=== PATIENT | male | born 1945 | race Caucasian/White ===

== ENCOUNTER 2016-12-01 17:36 | Inpatient (IN) | payer MEDICARE ==
[2016-12-01 17:49] LABS: Glucose,Whole Blood 100 mg/dL (75-99)
[2016-12-01] MEDS ORDERED: SODIUM CHLORIDE 0.9% 1,000 ML IV STA (17:52)
[2016-12-01 18:13] LABS: Basophils # (A) 0.1 k/uL (0-0.2); Basophils % (A) 1 %; CH 33.4; CHCM 34.5; Eosinophils # (A) 0.2 k/uL (0-0.7); Eosinophils % (A) 2 %; HCT 43.7 % (39.0-53.0); HDW 2.75; HGB 14.6 gm/dL (13.0-17.5); Luc # (Auto) 0.15; Luc % (Auto) 2; Lymphocytes # (A) 2.6 k/uL (1.0-4.8); Lymphocytes % (A) 35 %; MCH 32.6 pg (25.0-35.0); MCHC 33.5 g/dL (31.0-37.0); MCV 97.2 fL (80.0-100.0); Mean Platelet Volume 6.9; Monocytes # (A) 0.5 k/uL (0-1.0); Monocytes % (A) 6 %; Neutrophils % (A) 53 %; RBC 4.49 m/uL (4.30-5.90); WBC 7.5 k/uL (3.8-10.6); WBC (Perox) 7.43
[2016-12-01 18:25] LABS: INR 1.1 (<1.1); Partial Thromboplastin Time 23.2 sec (22.0-30.0); Prothrombin Time 10.6 sec (9.0-12.0)
[2016-12-01 18:26] LABS: Creatine Kinase 48 U/L (55-170)
[2016-12-01 18:39] LABS: Creatine Kinase MB 0.8 ng/mL (0.0-2.4); Troponin I <0.012 ng/mL (0.000-0.034)
[2016-12-01 18:40] LABS: ALT 33 U/L (21-72); AST 20 U/L (17-59); Alkaline Phosphatase 88 U/L (38-126); Anion Gap 13 mmol/L; Blood Urea Nitrogen 11 mg/dL (9-20); Calcium 9.8 mg/dL (8.4-10.2); Carbon Dioxide 23 mmol/L (22-30); Chloride 107 mmol/L (98-107); Glucose 108 mg/dL (74-99); Non-African American GFR(MDRD) >60 (>60 ml/min/1.73 sqM); Potassium 4.1 mmol/L (3.5-5.1); Sodium 143 mmol/L (137-145); Total Bilirubin 0.4 mg/dL (0.2-1.3); Total Protein 6.9 g/dL (6.3-8.2)
--- NOTE | 2016-12-01 18:44 | CT ---
EXAMINATION TYPE: CT brain wo con DATE OF EXAM: 12/01/2016 6:36 PM COMPARISON: 10/20/2016 HISTORY: Left sided numbness CT DLP: 1036 mGycm Automated exposure control for dose reduction was used. FINDINGS: There is mild cerebral cortical atrophy. There is no mass effect nor midline shift. There is no sign of intracranial hemorrhage. There is a 3 cm area of cortical hypodensity in the left posterior fronta l lobe consistent with old cortical infarct. Calvarium is intact. IMPRESSION: Mild atrophy. Old left frontal lobe small cortical infarct. No change.
--- NOTE | 2016-12-01 18:54 | XR ---
EXAMINATION TYPE: XR chest 2V DATE OF EXAM: 12/01/2016 6:48 PM COMPARISON: 10/20/2016 HISTORY: Altered mental status TECHNIQUE: Frontal and lateral views of the chest are obtained. FINDINGS: There is no heart failure nor confluent pneumonic infiltrate. There are sternal wires. Tho racic aorta is atheromatous. Heart size is normal. There is no pleural effusion. Bony thorax is intac t. IMPRESSION: No active cardiopulmonary disease. No change.
[2016-12-01] MEDS ORDERED: ENALAPRILAT 1.25 MG/ML 1 ML VIAL IVP STA (19:12)
--- NOTE | 2016-12-01 19:23 | ED ---
Neuro HPI - General Chief Complaint: Neuro Symptoms/Deficit Stated Complaint: left side numbness Time Seen by Provider: 12/01/16 17:43 Source: patient Mode of arrival: wheelchair Limitations: no limitations - History of Present Illness Is the patient presenting with stroke symptoms?: Yes -: unknown (He went to bed last night, that time he had no weakness, he woke up in the morning this when he felt his left leg was weak) Initial Comments: He woke up around 8 AM today and that he felt that his left leg was weak then numb he fell when he was getting out of his bed then he noticed his leg was getting any somewhat better then he fell again in the bedroom and this was around 5 PM when he talked to some of his friends and they recommend that he comes to the ER he had a stroke not too long ago that affected his right side now he had gotten better quite a bit he was able to ambulate freely but this left leg weakness is new since 8 AM he doesn't know exactly when he noticed it when he when it started but he noticed at 8 AM when he woke up it could've been even prior to the. He denies any headaches no blurred vision no slurred speech no neck pain no chest pain or shortness of breath no abdominal pain no frequency urgency dysuria - Related Data Home Medications: Home Medications Medication Instructions Recorded Confirmed Propylene Glycol/Peg 400/Pf 1 drop BOTH EYES DAILY PRN 10/20/16 12/01/16 [Systane 0.3-0.4% Eye Drops] valACYclovir [Valtrex] 1,000 mg PO BID 10/20/16 12/01/16 Lisinopril [Zestril] 2.5 mg PO DAILY 12/01/16 12/01/16 Previous Rx's Medication Instructions Recorded Artificial Tears-Hypromellose 1 drops BOTH EYES DAILY PRN #0 10/21/16 [Artificial Tear Drops] bottle Atorvastatin [Lipitor] 40 mg PO DAILY #30 tab 10/21/16 Clopidogrel [Plavix] 75 mg PO DAILY #30 tab 10/21/16 Metoprolol Tartrate [Lopressor] 25 mg PO BID #60 tab 10/21/16 Allergies/Adverse Reactions: Allergies Allergy/AdvReac Type Severity Reaction Status Date / Time bismuth subsalicylate Allergy Vomiting Verified 12/01/16 17:56 [From Pepto-Bismol] shellfish derived [Shellfish] Allergy Anaphylaxis Verified 12/01/16 17:56 cephalexin monohydrate AdvReac Rapid Verified 12/01/16 17:56 [From Keflex] Heart Rate Review of Systems ROS Statement: Those systems with pertinent positive or pertinent negative responses have been documented in the HPI. ROS Other: All systems not noted in ROS Statement are negative. General Exam - General Exam Comments Initial Comments: General: The patient is awake and alert, in no distress, and does not appear acutely ill. He says is 15 Skin: Skin is warm and dry and no rashes or lesions are noted. Eye: Pupils are equal, round and reactive to light, extra-ocular movements are intact; there is normal conjunctiva bilaterally. Ears, nose, mouth and throat: There are moist mucous membranes and no oral lesions. Neck: The neck is supple, there is no tenderness on the trachea is midline no subcu emphysema noticed Cardiovascular: There is a regular rate and rhythm. No murmur, rub or gallop is appreciated. Respiratory: To auscultation bilateral, no wheezing no rhonchi no distress respiratory pozo noticed Gastrointestinal: Soft, non-distended, non-tender abdomen without masses or organomegaly noted. There is no rebound or guarding present. Bowel sounds are unremarkable. Back: There is no tenderness to palpation in the midline. There is no obvious deformity. Musculoskeletal: Normal ROM, no tenderness, There is no pedal edema. There is no calf tenderness or swelling. No cords were appreciated. Neurological: CN II-XII intact, Cranial nerves III through XII are intact. At the time of exam his left leg is definitely weaker than his right leg he was able to lift his leg few inches off the bed when he was not able to hold him for more than a few seconds no weakness noticed in the upper extremity no weakness noticed on the right lower extremity Psychiatric: Cooperative, appropriate mood & affect, normal judgment. Limitations: no limitations Stroke MDM - Lab Data Result diagrams: 12/01/16 18:00 12/01/16 18:00 Lab Results 12/01/16 12/01/16 12/01/16 Range/Units 17:44 18:00 18:00 WBC 7.5 (3.8-10.6) k/uL RBC 4.49 (4.30-5.90) m/uL Hgb 14.6 (13.0-17.5) gm/dL Hct 43.7 (39.0-53.0) % MCV 97.2 (80.0-100.0) fL MCH 32.6 (25.0-35.0) pg MCHC 33.5 (31.0-37.0) g/dL RDW 14.0 (11.5-15.5) % Plt Count 233 (150-450) k/uL Neutrophils % 53 % Lymphocytes % 35 % Monocytes % 6 % Eosinophils % 2 % Basophils % 1 % Neutrophils # 4.0 (1.3-7.7) k/uL Lymphocytes # 2.6 (1.0-4.8) k/uL Monocytes # 0.5 (0-1.0) k/uL Eosinophils # 0.2 (0-0.7) k/uL Basophils # 0.1 (0-0.2) k/uL PT (9.0-12.0) sec INR (<1.1) APTT (22.0-30.0) sec D-Dimer (<0.60) mg/L FEU Sodium (137-145) mmol/L Potassium (3.5-5.1) mmol/L Chloride (98-107) mmol/L Carbon Dioxide (22-30) mmol/L Anion Gap mmol/L BUN (9-20) mg/dL Creatinine (0.66-1.25) mg/dL Est GFR (MDRD) Af Amer (>60 ml/min/1.73 sqM) Est GFR (MDRD) Non-Af (>60 ml/min/1.73 sqM) Glucose (74-99) mg/dL POC Glucose (mg/dL) 100 H (75-99) mg/dL POC Glu Well Head Pumper ID Flor[place]ma Back Calcium (8.4-10.2) mg/dL Total Bilirubin (0.2-1.3) mg/dL AST (17-59) U/L ALT (21-72) U/L Alkaline Phosphatase (38-126) U/L Total Creatine Kinase 48 L (55-170) U/L CK-MB (CK-2) 0.8 (0.0-2.4) ng/mL CK-MB (CK-2) Rel Index 1.7 Troponin I <0.012 (0.000-0.034) ng/mL Total Protein (6.3-8.2) g/dL Albumin (3.5-5.0) g/dL 12/01/16 12/01/16 12/01/16 Range/Units 18:00 18:00 18:00 WBC (3.8-10.6) k/uL RBC (4.30-5.90) m/uL Hgb (13.0-17.5) gm/dL Hct (39.0-53.0) % MCV (80.0-100.0) fL MCH (25.0-35.0) pg MCHC (31.0-37.0) g/dL RDW (11.5-15.5) % Plt Count (150-450) k/uL Neutrophils % % Lymphocytes % % Monocytes % % Eosinophils % % Basophils % % Neutrophils # (1.3-7.7) k/uL Lymphocytes # (1.0-4.8) k/uL Monocytes # (0-1.0) k/uL Eosinophils # (0-0.7) k/uL Basophils # (0-0.2) k/uL PT 10.6 (9.0-12.0) sec INR 1.1 (<1.1) APTT 23.2 (22.0-30.0) sec D-Dimer 1.70 H (<0.60) mg/L FEU Sodium 143 (137-145) mmol/L Potassium 4.1 (3.5-5.1) mmol/L Chloride 107 (98-107) mmol/L Carbon Dioxide 23 (22-30) mmol/L Anion Gap 13 mmol/L BUN 11 (9-20) mg/dL Creatinine 1.00 (0.66-1.25) mg/dL Est GFR (MDRD) Af Amer >60 (>60 ml/min/1.73 sqM) Est GFR (MDRD) Non-Af >60 (>60 ml/min/1.73 sqM) Glucose 108 H (74-99) mg/dL POC Glucose (mg/dL) (75-99) mg/dL POC Glu Well Head Pumper ID Calcium 9.8 (8.4-10.2) mg/dL Total Bilirubin 0.4 (0.2-1.3) mg/dL AST 20 (17-59) U/L ALT 33 (21-72) U/L Alkaline Phosphatase 88 (38-126) U/L Total Creatine Kinase (55-170) U/L CK-MB (CK-2) (0.0-2.4) ng/mL CK-MB (CK-2) Rel Index Troponin I (0.000-0.034) ng/mL Total Protein 6.9 (6.3-8.2) g/dL Albumin 4.1 (3.5-5.0) g/dL Past Medical History Past Medical History: Coronary Artery Disease (CAD), Myocardial Infarction ([place]) Additional Past Medical History / Comment(s): ABD HERNIA, 7- CELLULITS ABD/ BACK PT STATED AHS HAD SAME RASH AND ASSOCIATED FEVER 6 TIMES SINCE TX WITH STEROIDS AND ABX BUT IT COMES BACK, PVD. HX OF TRIPPING OVER A GARDEN TOOL IN [place] 2 WEEKS AGO HAS PAIN RT RIB AREAS WHEN TAKING DEEP BREATH AND SAID HIT HIS NOSE SO HARD HE THINKS HE MAY HAVE BROKEN IT-HAD BLEEDING OFF AND ON X2 DAYS. Last Myocardial Infarction Date:: 1999 History of Any Multi-Drug Resistant Organisms: None Reported Past Surgical History: Coronary Bypass/CABG, Tonsillectomy Additional Past Surgical History / Comment(s): TRIPLE CABG , CHILDHOOD ACCIDENT WHERE A SHATTERED PEICE OF FENCE POST WENT THROUGH HIM SIDE TO SIDE. HAD PART OF HIS BOWEL REMOVED. Past Anesthesia/Blood Transfusion Reactions: Motion Sickness Past Psychological History: No Psychological Hx Reported Additional Psychological History / Comment(s): PT LIVES AT HOME WITH HIS . IS VERY INDEPENDANT. 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 Does have exposure to material every spring from where small animals such as mice had made nests in the [employer]. However his illnesses started in December before he was cleaning out these machines. He has no experience. No international travel. There is a pet cat in the home it's been there for about 5 years. No other animal exposures. Was a tobacco smoker stopping 15 years ago. No specific history of alcohol or recreational drug use. Smoking Status: Former smoker Past Alcohol Use History: Rare Additional Past Alcohol Use History / Comment(s): STARTED SMOKING AT AGE 14- SMOKED 2 ENJOYS AND RARE TO OCC BEER,DENIES ANY PAST OR CURRENT DRUG USE. Past Drug Use History: None Reported - Past Family History Father Additional Family Medical History / Comment(s): FROM A BRAIN ANEURYSM Mother Family Medical History: Myocardial Infarction ([place]) Course Vital Signs 12/01/16 12/01/16 12/01/16 17:47 18:00 18:53 Temperature 99.0 F 98.3 F Pulse Rate 70 74 68 Respiratory 20 16 16 Rate Blood Pressure 183/87 172/81 180/100 O2 Sat by Pulse 99 96 96 Oximetry KG is normal sinus rhythm ventricular rate 71 NJ interval is 142 QRS duration is 96 QT/QTc is 394/428 review of this EKG does not show any ST elevation or ST depression Considering the onset of symptoms is not clear 8 AM in the morning when patient I noticed that, it could've started even earlier than that patient showed showed up in the ER about 9 hours after he noticed symptoms that's why there is no question of any thrombolytics at this point and his symptoms have gotten somewhat better Disposition Clinical Impression: CVA (cerebral vascular accident) Disposition: ADMITTED IP TO THIS HOSP Condition: Good
[2016-12-01 19:26] LABS: Amorphous Sediment,Urine Rare /hpf; Appearance,Urine Clear (Clear); Bilirubin,Urine Negative (Negative); Glucose,Urine (UA) Negative (Negative); Ketones,Urine Negative (Negative); Leukocyte Esterase,Urine Moderate (Negative); Mucus,Urine Rare /hpf; Nitrite,Urine Negative (Negative); Particle Count 982; Protein,Urine Negative (Negative); RBC,Urine 2 /hpf (0-5); UA Billing (MACRO vs. MICRO) MICRO; Urobilinogen,Urine <2.0 mg/dL (<2.0); WBC,Urine 7 /hpf (0-5)
[2016-12-01] MEDS ORDERED: ONDANSETRON 4 MG/2 ML VIAL IVP PRN (19:28)
[2016-12-01] MEDS ORDERED: ACETAMINOPHEN TAB 325 MG TAB PO PRN (19:28)
[2016-12-01] MEDS ORDERED: NALOXONE 0.4 MG/ML 1 ML VIAL IV PRN (19:28)
[2016-12-01] MEDS ORDERED: ARTIFICIAL TEARS-HYPROMELLOSE DROPS 15 ML BTL BOTH EYES PRN (19:33)
[2016-12-01] MEDS ORDERED: PROPYLENE GLYCOL BOTH EYES PRN (19:33)
[2016-12-01] MEDS ORDERED: PEG BOTH EYES PRN (19:33)
--- NOTE | 2016-12-01 20:51 | US ---
EXAMINATION TYPE: US venous doppler duplex LE LT DATE OF EXAM: 12/01/2016 8:34 PM COMPARISON: NONE CLINICAL HISTORY: US. Pain left lower leg SIDE PERFORMED: Left VESSELS IMAGED: External Iliac Vein (EIV) Common Femoral Vein Deep Femoral Vein Greater Saphenous Vein * Femoral Vein Popliteal Vein Small Saphenous Vein * Proximal Calf Veins (* superficial vessels) Left Leg: No evidence of DVT. TECHNOLOGIST IMPRESSION: No evidence of DVT left leg. Incidental finding: minimal flow noted femoral artery prox/mid IMPRESSION: No evidence of deep venous thrombosis in the left leg. There is noted significant occlus matt disease involving the femoral artery.
[2016-12-01] MEDS ORDERED: valACYclovir 500 MG TAB PO SCH (21:00)
[2016-12-01 21:40] VITALS: BMI 29.7
[2016-12-01] MEDS: valACYclovir HCL 1,000 MG TABLET PO SCH (21:47)
[2016-12-01] MEDS: METOPROLOL TARTRATE 25 MG TAB PO SCH (22:06)
[2016-12-02] MEDS: CLOPIDOGREL 75 MG TAB PO SCH (08:51)
[2016-12-02] MEDS: METOPROLOL TARTRATE 25 MG TAB PO SCH ×2 (08:51→20:41)
[2016-12-02] MEDS: valACYclovir HCL 1,000 MG TABLET PO SCH ×2 (08:51→20:41)
[2016-12-02] MEDS ORDERED: ATORVASTATIN 40 MG TAB PO SCH (09:00)
[2016-12-02] MEDS ORDERED: LISINOPRIL 2.5 MG TAB PO SCH (09:00)
[2016-12-02] MEDS: ENOXAPARIN 40 MG/0.4 ML SYRINGE SQ SCH (17:50)
[2016-12-02] MEDS: ASPIRIN 81 MG CHEW PO SCH (17:50)
[2016-12-02] MEDS: LISINOPRIL-HCTZ 10-12.5 MG 1 EACH TAB PO SCH (20:42)
--- NOTE | 2016-12-02 20:52 | HP ---
DATE OF ADMISSION: 12/01/2016 PRESENTING COMPLAINT: Left leg weakness. HISTORY OF PRESENTING COMPLAINT: This is a pleasant 71-year-old patient who was seen in the hospital in the early part of October. He was then seen by Dr. Samuel from Neurology. Patient at that time had an acute stroke in the left MCA territory with right-sided weakness. Patient was found to have a chronically occluded left internal carotid artery and also was found to have multifocal significant narrowing and occlusion of the left vertebral artery. Patient's other chronic medical conditions include coronary artery disease, hypertension. Patient's last 2-D echo showed an EF of 35% to 40%. Patient presented with some left leg weakness. No infection of the arm. Speech was not involved. There was no change in vision, no change in swallowing. Patient had to drag his feet. Over the course of time, symptoms are greatly improved. REVIEW OF SYSTEMS: CONSTITUTIONAL: None. HEENT: None. RESPIRATORY: None. CARDIOVASCULAR: None. GASTROINTESTINAL: None. GENITOURINARY: None. MUSCULOSKELETAL: None. DERMATOLOGICAL: None. HEMATOLOGICAL: None. LYMPHATICS: None. PSYCHIATRY: None. NEUROLOGICAL: None. PAST MEDICAL HISTORY: 1. Stroke in the left middle cerebral artery with complete occlusion of the left internal carotid artery. 2. 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 3. Coronary artery disease with prior history of CABG. 4. Essential hypertension. 5. Dysarthria previously. 6. Abdominal hernia. PAST SURGICAL HISTORY: 1. Coronary artery bypass. 2. Tonsillectomy. 3. The patient had a childhood accident when a piece of fence when through him from one side to the other; had part of his bowel removed. SOCIAL HISTORY: . 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 He did smoke in the past. FAMILY HISTORY: Myocardial infarction. HOME MEDICATIONS: 1. Valtrex 1000 mg p.o. daily. 2. Systane 1 drop to both eyes daily p.r.n. 3. Lopressor 25 mg p.o. b.i.d. 4. Zestril 2.5 p.o. daily. 5. Plavix 75 mg p.o. daily. 6. Lipitor 40 mg p.o. daily. 7. Artificial Tears 1 drop to both eyes daily p.r.n. ALLERGIES: SHELLFISH. Looks like side effects to PEPTO-BISMOL and KEFLEX. PHYSICAL EXAMINATION: VITAL SIGNS ON PRESENTATION: Temperature 99, pulse 70, respiration 20, blood pressure 183/87, pulse ox 99% on room air. GENERAL APPEARANCE: Average build. Lying in bed, not in distress. EYES: Pupils equal. Conjunctivae normal. HEENT: Oral cavity normal. NECK: JVD not raised. Mass not palpable. RESPIRATORY: Effort normal. Lungs are clear. CARDIOVASCULAR: First and second sounds normal. No edema. ABDOMEN: Soft, nontender. Liver and spleen not palpable. LYMPHATIC: No lymph node palpable in neck or axillae. PSYCHIATRY: Alert and oriented x3. Mood and affect normal. NEUROLOGICAL: Pupils equal. Cranial nerves grossly intact. Power and sensation grossly intact. INVESTIGATIONS: White count 7.5, hemoglobin 14.6, potassium 4.1. UA positive for leukocyte esterase, WBC. CT scan of the brain shows old left frontal lobe cortical infarct. ASSESSMENT: 1. Acute stroke in the right middle cerebral artery with weakness of the left leg; symptoms have nearly resolved in a right-handed patient. 2. Complete occlusion of the left internal carotid artery, chronic. 3. 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 4. Coronary artery disease with prior history of bypass. 5. Essential hypertension, uncontrolled on presentation. 6. Ischemic cardiomyopathy; ejection fraction 35% to 40% per recent echocardiogram. PLAN: Patient is already taking Plavix at home. Will add a small dose of aspirin 81 mg a day. Since the blood pressure is running high, blood pressure medication will be adjusted. Patient already had extensive workup done recently; I am not sure if further can be added. We will get a neurology opinion in the meantime. Patient left leg is nearly completely resolved. Care was discussed in detail with the patient.
[2016-12-02] MEDS ORDERED: ATORVASTATIN 80 MG TAB PO SCH (21:00)
--- NOTE | 2016-12-02 22:43 | CONS ---
DATE OF CONSULTATION: 12/02/2016 CHIEF COMPLAINT: Transient ischemic attack. HISTORY OF PRESENT ILLNESS: The patient is a pleasant 71-year-old male who is being evaluated by the neurology service per the request of Dr. Rodriguez for a transient ischemic attack. The patient was brought into [facility] emergency room yesterday after the patient noticed numbness and weakness involving his left lower extremity. The patient does have history of strokes and transient ischemic attack in the past. He states that approximately one month ago, he had similar symptoms involving his right lower extremity, which lasted a couple of days and did resolve. He was seen at [facility] for that episode, and did have a full neurological exam work-up. At that time, his carotid Doppler showed evidence of left internal carotid artery occlusion and this was also verified by a CT angiogram of the neck, which was done on 10/30/2016. The patient on that admission was switched from aspirin to Plavix but he states that he was still just taking aspirin daily at home and was not taking Plavix. On this admission, his left lower extremity weakness and numbness came on suddenly and lasted several hours. By the time he was admitted, his symptoms had resolved completely. At the time of my evaluation, he is lying in his bed and appears to be in no acute distress. He denies any neurological symptoms at this time. I did review his CT scan of the brain, which showed old ischemic stroke involving the left frontal lobe along with generalized atrophy. His CBC, comprehensive metabolic profile, and cardiac enzymes were normal. His urinalysis did show 7 WBCs with moderate leukocyte esterase. PAST MEDICAL HISTORY: Stroke, transient ischemic attack, hypertension, coronary artery disease, history of coronary artery bypass graft, history of left internal carotid artery occlusion, history of myocardial infarction, history of tonsillectomy. SOCIAL HISTORY: The patient is a former smoker. He rarely drinks alcohol. He denies any drug use. The patient lives at home with his . FAMILY HISTORY: Positive for intracranial aneurysm and heart disease. HOME MEDICATIONS: Reviewed in the chart. ALLERGIES: SHELLFISH, KEFLEX, PEPTO-BISMOL. REVIEW OF SYSTEMS: CONSTITUTIONAL: Negative. ( ) ENT: Negative. CARDIOVASCULAR: Negative. RESPIRATORY: Negative. NEUROLOGICAL: As mentioned above. GASTROINTESTINAL: Negative. GENITOURINARY: Negative. PSYCHIATRIC: Negative. MUSCULOSKELETAL: Negative. Dermatological: Negative. ENDOCRINE: Negative. PHYSICAL EXAM: Vital signs show a temperature of 99.8, pulse 66, respirations 18, blood pressure 150/68. GENERAL APPEARANCE: The patient is a well-developed, elderly male who appears to be in no acute distress. HEENT: Normocephalic, atraumatic, no facial asymmetry is seen. Neck is supple with no masses felt. CARDIOVASCULAR: Regular rate and rhythm. ABDOMEN: Nontender, nondistended. EXTREMITIES: No edema or clubbing. NEUROLOGICAL EXAM: The patient is awake and oriented x3. Speech and language are normal. Strength is full in all 4 extremities. Sensory exam was normal to light touch in all 4 extremities. No tremors or seizure-like activity is seen. No facial asymmetry is noticed on cranial nerve testing. IMPRESSION: 1. Transient ischemic attack. 2. Left lower extremity numbness, resolved. 3. Left lower extremity weakness, resolved. 4. History of ischemic stroke. 5. Hypertension. 6. History of left internal carotid artery occlusion. RECOMMENDATIONS: The patient does appear to have suffered a transient ischemic attack with a transient episode of left lower extremity weakness and numbness. His symptoms have completely resolved at this time. The patient was supposed to be discharged on Plavix on the last admission, but it is unclear why he is still only taking aspirin at home. I will again switch his aspirin to Plavix 75 mg daily and the patient was told that he is to be on Plavix after discharge and to hold aspirin. He did have a carotid Doppler and a CT angiogram of the neck last month and I do not see the need to repeat these studies. I will order a fasting lipid panel and serum homocysteine level. An EEG has been ordered. I reviewed with the patient the results of his CT scan of the brain and laboratory work-up and answered all of his questions to the best of my ability. Continue neuro checks for now. I will continue to follow with you. Further recommendations to follow. Thank you for allowing me to participate in the care of your patient. If you have any questions, please feel free to contact me.
[2016-12-03 07:48] VITALS: BP 122/69; PULSE 65; RESP 18; TEMP 100.7
[2016-12-03] MEDS: ASPIRIN 81 MG CHEW PO SCH (08:12)
[2016-12-03] MEDS: ENOXAPARIN 40 MG/0.4 ML SYRINGE SQ SCH (08:12)
[2016-12-03] MEDS: LISINOPRIL-HCTZ 10-12.5 MG 1 EACH TAB PO SCH (08:12)
[2016-12-03] MEDS: valACYclovir HCL 1,000 MG TABLET PO SCH (08:12)
[2016-12-03] MEDS: METOPROLOL TARTRATE 25 MG TAB PO SCH (08:12)
[2016-12-03] MEDS: CLOPIDOGREL 75 MG TAB PO SCH (08:12)
[2016-12-03 09:00] LABS: Cholesterol 106 mg/dL (<200); HDL Cholesterol 28 mg/dL (40-60); Triglycerides 140 mg/dL (<150)
--- NOTE | 2016-12-03 14:25 | P.PN ---
Subjective Principal diagnosis: Patient is a pleasant 71-year-old male who is being followed by the neurology service for transient ischemic attack. Patient has prior history of strokes and was on Plavix at home. Patient does admit he has not been taking his Plavix in the home setting. Upon Admission, Patient Did Have Left Lower Extremity Weakness and Numbness Which Came on Suddenly and Lasted for Several Hours. He States by the Time He Was Admitted His Symptoms Had Resolved Completely. As You Recall, Carotid Doppler Showed Evidence of Left Internal Carotid Artery Occlusion Which Was Confirmed by CT Angiogram of the Neck. Computed Tomography Scan of the Brain Did Show Old Ischemic Stroke Involving Left Frontal Lobe along with Generalized Atrophy. At the Time of My Evaluation , Patient Is Resting Comfortably in Bed and Appears to Be in No Acute Distress. He Denies Any New or Ongoing Neurological Symptoms. Objective - Vital Signs Vital signs: Vital Signs Temp 100.7 F H 12/03/16 07:00 Pulse 65 12/03/16 07:00 Resp 18 12/03/16 07:00 BP 122/69 12/03/16 07:00 Pulse Ox 94 L 12/03/16 07:00 Intake & Output 12/02/16 12/03/16 12/03/16 18:59 06:59 18:59 Intake Total 180 1595 240 Output Total 750 Balance 180 845 240 Intake: IV 475 Sodium Chloride 0.9% 1, 475 000 ml @ 75 mls/hr IV . [id number] STA Rx#:[id number] Oral 180 1120 240 Output: Urine 750 Other: Voiding Method Urinal # Voids 1 2 # Bowel Movements 0 - Exam PHYSICAL EXAM: GENERAL APPEARANCE: Patient is a well-developed, male who appears to be in no acute distress. HEENT: Normocephalic, atraumatic, no facial asymmetry is seen. Neck is supple with no masses felt. CARDIOVASCULAR: Regular rate and rhythm. ABDOMEN: Nontender, nondistended. EXTREMITIES: Show no edema or clubbing. NEUROLOGICAL EXAM: Patient is awake, alert, and oriented 3. Speech and language are normal. Strength is full in all 4 extremities. Sensory exam is normal to light touch in all 4 extremities. No tremors or seizure-like activity is seen. No facial asymmetry is noted on cranial nerve testing. - Labs CBC & Chem 7: 12/01/16 18:00 12/01/16 18:00 Labs: Abnormal Lab Results - Last 24 Hours (Table) 12/03/16 Range/Units 08:00 HDL Cholesterol 28 L (40-60) mg/dL Assessment and Plan Plan: Impression: 1. Transient ischemic attack 2. Left lower extremity numbness, resolved 3. Left lower extremity weakness, resolved 4. History of ischemic stroke 5. Hypertension 6. History of left internal carotid artery occlusion Recommendations: Patient does appear to have suffered a transient ischemic attack with transient episode of left lower extremity weakness and numbness. His symptoms have resolved at this time. His fasting lipid panel was within normal limits except for low HDL of 28. Serum homocystine level is pending. EEG was done and results are pending. Continue Plavix 75 mg daily. Continue neuro checks. Patient is stable for discharge from a neurology standpoint. Barring any abnormalities on the EEG, we will continue to follow with you on an as-needed basis. Please feel free to call with any questions or concerns. I performed an examination of the patient and discussed the management with the BIOFUELS PROCESSING TECHNICIAN. I have reviewed the BIOFUELS PROCESSING TECHNICIAN notes and agree with the findings and plan of care.
--- NOTE | 2016-12-03 21:49 | EEG ---
DATE OF SERVICE: 12/03/2016 INDICATIONS FOR EXAMINATION: Transient ischemic attack. AGE: 71Y DESCRIPTION OF PROCEDURE: This EEG was performed using a 21 channel digital electroencephalograph following international 10-20 system. DESCRIPTION OF THE RECORDING: From the beginning of the tracing, with the patient's eyes closed, the background rhythm was mostly consisting of 8 Hz alpha frequency in the posterior occipital leads. No obvious asymmetry is seen. Occasional movement artifacts are noticed. Photic stimulation was performed with no driving response seen. No pathological waves were elicited. Hyperventilation was not performed. Muscle artifacts are seen. The patient does reach Stage II of sleep during the tracing and occasional sleep spindles are seen. No epileptiform discharges were seen. His EKG lead showed regular rate and rhythm. INTERPRETATION: This awake EEG can be considered within normal limits. There was no asymmetry seen. No epileptiform discharges were noticed. The absence of epileptiform discharges does not rule out the diagnosis of epilepsy, therefore, clinical correlation is recommended.
--- NOTE | 2016-12-03 22:34 | DS ---
DATE OF ADMISSION: 12/01/2016 DATE OF DISCHARGE: 12/03/2016 FINAL DIAGNOSES: 1. Possible stroke in acute right middle cerebral artery with symptoms nearly resolved in a right-handed patient, likely ischemic in nature. 2. Complete occlusion of the left internal carotid artery, chronic. 3. 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 4. Coronary artery disease with prior history of bypass. 5. Essential hypertension, uncontrolled on presentation. 6. Ischemic cardiomyopathy; ejection fraction 35% to 40% per recent echocardiogram. HOSPITAL COURSE: This patient with a prior stroke presented with weakness in the left leg that nearly resolved. Patient had a repeat EEG. CT scan of the brain unremarkable. Seen by Dr. Samuel from neurology, [facility] for discharge. On examination, weakness, left leg, nearly resolved. Per Dr. Samuel, patient was put on Plavix. DISCHARGE MEDICATIONS: 1. Systane 0.4%, 1 drop to both eyes daily p.r.n. 2. Valtrex 1000 mg p.o. daily. 3. Artificial tears 1 drop to both eyes daily p.r.n. 4. Lopressor 25 mg p.o. b.i.d. 5. Lipitor 80 mg p.o. q.h.s. 6. Plavix 75 mg p.o. daily. 7. Zestoretic 08/28.5, 1 tablet p.o. b.i.d. Follow up with Dr. Gupta in 1 week. Follow up with Dr. Samuel in 10 days.
--- NOTE | 2016-12-04 15:24 | CDI ---
In responding to this query, please exercise your independent professional judgment. The [facility] Coding Staff and Clinical Documentation Specialists appreciate your assistance in clarifying documentation, maintaining compliance with coding guidelines, accurately documenting patients condition and capturing severity of illness. The fact that a question is asked does not imply that any particular answer is desired or expected. Communication forms are a method of clarifying documentation and are not made part of the Legal Health Record. Thank you in advance for your clarification. Last Revision, September 2015 Raffi Gonzalez [address] [place] [place] [address] Documentation Clarification Form Date: 12/04/2016 2:33:00 PM From: Nereyda Bonner Phone: Admit Date: 12/01/2016 7:22:00 PM Patient Name: Rodger Adam Visit Number: [id number] Discharge Date: Dr. Manish Rodriguez Stroke documented in the H&P and possible stroke likely ischemic is mentioned in the discharge summary. Patient history/risk factors: Patient has a history of stroke, CAD, old AL, Hypertension, Chronic occlusion of the left carotid artery and left vertebral artery. Clinical Indicators: The patient was admitted with left sided numbness and weakness. Symptoms nearly resolved by discharge. Radiology findings: CT of the head: Mild atrophy, old left frontal lobe small cortical infarct. No change. Vital Signs: T. 99.0, P. 70, R. 20, BP 183/87 on admit and then 211/94 2 hours later, 02 99% Treatment: Patient was on aspirin at home and switched to Plavix during this admission. Consults: On 12/02, Dr. Osbaldo Samuel documented Transient ischemic attack, left lower extremity numbness and weakness nearly resolved In your professional opinion, can you please clarify if the CVA was ruled in or ruled out? Other Unable to determine Please document in your progress notes and discharge summary in order to capture severity of illness and risk of mortality. Include clinical findings that support your diagnosis. FYI: Press F11 to launch patient chart. Place X here if this finding has no clinical significance, is not applicable or if you are not able to provide any additional documentation. DONNA
== END 2016-12-03 14:58 | disposition home or self-care (01) | DRG 65 ==
LOC: EC 17:36 → 6SEL 19:22 → 4MS4W 12-02 18:58
PROVIDERS: ADMIT Hospitalist; ATTEND Hospitalist
DX: I63.9 Cerebral infarction, unspecified (principal); G81.94 Hemiplegia, unspecified affecting left nondominant side; I25.5 Ischemic cardiomyopathy; I10 Essential (primary) hypertension; I25.10 Atherosclerotic heart disease of native coronary artery without angina pectoris; I65.22 Occlusion and stenosis of left carotid artery; I25.2 Old myocardial infarction; I65.02 Occlusion and stenosis of left vertebral artery; I73.9 Peripheral vascular disease, unspecified; Z79.02 Long term (current) use of antithrombotics/antiplatelets; Z79.82 Long term (current) use of aspirin; Z79.899 Other long term (current) drug therapy; Z88.8 Allergy status to other drugs, medicaments and biological substances; Z88.1 Allergy status to other antibiotic agents; Z91.013 Allergy to seafood; Z86.73 Personal history of transient ischemic attack (TIA), and cerebral infarction without residual deficits; Z87.891 Personal history of nicotine dependence; Z95.1 Presence of aortocoronary bypass graft; Z82.49 Family history of ischemic heart disease and other diseases of the circulatory system; W19.XXXA Unspecified fall, initial encounter
CPT/HCPCS: 36415; 70450; 71020; 80053; 80061; 81001; 82550; 82553; 83090; 84484; 85025; 85379; 85610; 85730; 93005; 95819; 96361; 96374; 99285